=== PATIENT | female | born 1960 | race Caucasian/White ===

== ENCOUNTER 2018-09-07 15:26 | Inpatient (IN) ==
[2018-09-07] MEDS ORDERED: Morphine Inj 4 MG/ML Vial IV.PUSH ONE (16:59)
[2018-09-07] MEDS ORDERED: Vancomycin Inj 1 GM/200 ML PIGGYBACK IV.SIG SCH (17:00)
[2018-09-07] MEDS ORDERED: Tetanus/Diphtheria Toxoid Adult Vaccine Inj 0.5 ML Vial IM ONE (17:06)
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
[2018-09-07] MEDS: Clindamycin 600 mg/NS Premix 600 MG/50 ML PIGGYBACK IV.SIG SCH (17:16)
--- NOTE | 2018-09-07 17:22 | XR ---
EXAM DATE: 09/07/2018 5:15 PM EDT AGE/SEX: 57 years / Female INDICATIONS: Fever. CLINICAL DATA: This is the patient's initial encounter. Patient reports that signs and symptoms have been present for 1 day and indicates a pain score of 5/10. MEDICAL/SURGICAL HISTORY: None. None. COMPARISON: None.. FINDINGS: A single AP view of the chest demonstrates the lungs to be symmetrically aerated without evidence of mass, infiltrate or effusion. The cardiomediastinal contours are unremarkable. Osseous structures a re intact. CONCLUSION: No acute cardiopulmonary disease. Electronically signed by: Hitesh Brown MD 09/07/2018 5:20 PM EDT
[2018-09-07 17:35] LABS: Baso # (Auto) 0.1 th/mm3 (0.0-0.2); Baso % (Auto) 1.1 % (0.0-2.0); Eos % (Auto) 0.5 % (0.0-4.0); Hematocrit 36.4 % (35.0-46.0); Hemoglobin 12.9 gm/dL (11.6-15.3); Lymph # (Auto) 1.1 th/mm3 (1.0-4.8); Lymph % (Auto) 15.1 % (9.0-44.0); Mean Corpuscular HGB Conc 35.5 % (32.0-36.0); Mean Corpuscular Hemoglobin 31.6 pg (27.0-34.0); Mean Corpuscular Volume 89.1 fL (80.0-100.0); Mean Platelet Volume 9.1 fL (7.0-11.0); Mono # (Auto) 0.4 th/mm3 (0.0-0.9); Mono % (Auto) 6.3 % (0.0-8.0); Neut # (Auto) 5.4 th/mm3 (1.8-7.7); Platelet Count 230 th/mm3 (150-450); Red Blood Count 4.09 mil/mm3 (4.00-5.30); Red Cell Distribution Width 13.7 % (11.6-17.2)
[2018-09-07] MEDS ORDERED: Vancomycin Inj 1,000 MG in Sodium Chlor 0.9% Inj 250 ML IV.SIG ONE (17:45)
[2018-09-07] MEDS ORDERED: Sodium Chloride 0.9% 2 ML Flush PRN IV.FLUSH (17:45)
[2018-09-07 17:46] LABS: Activated Partial Thrombo Time 27.5 sec (24.3-30.1); Prothrombin Time 10.2 sec (9.8-11.6)
[2018-09-07 17:51] LABS: Alanine Aminotransferase 42 U/L (10-53); Albumin 4.2 g/dL (3.4-5.0); Anion Gap 8 meq/L (5-15); Aspartate Aminotransferase 20 U/L (15-37); Blood Urea Nitrogen 13 mg/dL (7-18); Calcium 8.9 mg/dL (8.5-10.1); Carbon Dioxide 27.2 meq/L (21.0-32.0); Chloride 103 meq/L (98-107); Glomerular Filtration Rate 70 mL/min (>89); Glucose,Random 107 mg/dL (74-106); Magnesium 2.4 mg/dL (1.5-2.5); Potassium 3.8 meq/L (3.5-5.1); Sodium 138 meq/L (136-145)
[2018-09-07 17:54] LABS: Alkaline Phosphatase 93 U/L (45-117); Total Protein 7.8 g/dL (6.4-8.2)
[2018-09-07 18:17] LABS: Bilirubin,Urine Negative (Negative); Clarity,Urine Clear (Clear); Color,Urine Straw (Yellw/Straw); Glucose,Urine (UA) Negative (Negative); Leukocyte Esterase,Urine Negative (Negative); Nitrite,Urine Negative (Negative); Specific Gravity,Urine 1.008 (1.002-1.035); Squamous Epithelial Cell,Urine <1 /hpf (0-5)
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
[2018-09-07] MEDS: Sodium Chloride 0.9% 2 ML Flush BID IV.FLUSH SCH (21:26)
[2018-09-07] MEDS ORDERED: Chlorhexidine Gluconate 2% 1 Pack (2 Cloths) TOPICAL ONE (22:01)
[2018-09-07] MEDS ORDERED: Metoprolol Tartrate 25 MG Tablet PO ONE (22:01)
[2018-09-07] MEDS ORDERED: Sodium Chlor 0.9% Inj 500 ML IV.SIG SCH (23:00)
[2018-09-08] MEDS: Clindamycin 600 mg/NS Premix 600 MG/50 ML PIGGYBACK IV.SIG SCH ×3 (01:29→23:15)
[2018-09-08] MEDS: Sodium Chloride 0.9% 2 ML Flush BID IV.FLUSH SCH ×2 (09:00→21:47)
--- NOTE | 2018-09-08 11:23 | ECG ---
Date Performed: 09/07/2018 Time Performed: 23:58:46 PTAGE: 57 years EKG: Sinus rhythm NORMAL ECG PREVIOUS TRACING : 09/07/2018 17.13 Since previous tracing, no significant change noted DOCTOR: Armando Quinteros Interpretating Date/Time 09/08/2018 11:21:53
[2018-09-08] MEDS ORDERED: Sodium Chlor 0.9% Inj 250 ML IV.CONT ONE (14:24)
[2018-09-08] MEDS ORDERED: Lidocaine PF 1% Inj 5 ML Syringe OTHER ONE (14:24)
[2018-09-08] MEDS ORDERED: Clindamycin Inj 600 MG/4 ML Vial ONE (14:36)
[2018-09-08] MEDS ORDERED: fentaNYL Citrate Inj 100 MCG/2 ML Ampul ONE (15:00)
--- NOTE | 2018-09-08 15:11 | P.BOP ---
Date of procedure: 09/08/18 Procedure: left leg irrigation and debridement, application of wound vac dressing Anesthesia: MARTA Surgeon: Reina Dyson MD Estimated blood loss (mL): 25 Tourniquet time (min): 0 IV fluids (mL): 500 Pathology: none sent Condition: stable Disposition: PACU
[2018-09-08] MEDS ORDERED: *morphine SULFATE 4 MG/ML PERIprocedure ONLY ONE (15:31)
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
--- NOTE | 2018-09-09 00:36 | ECG ---
Date Performed: 09/07/2018 Time Performed: 17:13:59 PTAGE: 57 years EKG: Sinus rhythm NORMAL ECG NO PREVIOUS TRACING DOCTOR: Faisal Saini Interpretating Date/Time 09/09/2018 00:34:44
[2018-09-09] MEDS: Clindamycin 600 mg/NS Premix 600 MG/50 ML PIGGYBACK IV.SIG SCH (06:48)
--- NOTE | 2018-09-09 09:50 | P.PNOP ---
Subjective Interval history: Patient is awake and alert and standing at the sink brushing her teeth. She states that her pain is well controlled and only has occasional "stabbing" pains. Patient states that she does not want to take any narcotics. She admits to having some anxiety from this hospital visit. She is also requesting a sleep aid medication. Patient does not feel ready for discharge to home today. Physical Exam Vital signs: Vital Signs 09/08/18 12:00 09/08/18 15:21 09/08/18 15:30 Temperature 97.7 F 98.2 F Pulse Rate 89 97 H 94 H Respiratory Rate 20 14 12 Blood Pressure 138/70 120/67 121/58 L Pulse Oximetry 97 09/08/18 15:38 09/08/18 15:45 09/08/18 16:00 Temperature Pulse Rate 91 H 84 Respiratory Rate 10 L 14 12 Blood Pressure 122/58 L 132/62 Pulse Oximetry 09/08/18 20:00 09/09/18 00:00 09/09/18 04:00 Temperature 97.6 F 97.5 F L 97.3 F L Pulse Rate 88 74 68 Respiratory Rate 18 18 18 Blood Pressure 117/58 L 98/53 L 102/52 L Pulse Oximetry 95 95 97 09/09/18 08:00 Temperature 97.5 F L Pulse Rate 73 Respiratory Rate 17 Blood Pressure 127/59 L Pulse Oximetry 97 Intake & Output 09/08/18 09/09/18 09/09/18 18:59 06:59 18:59 Intake Total 550 / 550 290 / 290 Output Total 25 / 25 1000 / 1000 Balance 525 / 525 -710 / -710 Weight 72.3 kg Intake: IV 50 / 50 50 / 50 Cleocin 600 mg/NS Premix 600 mg 50 / 50 50 / 50 In 50 ml @ 100 mls/hr IV.SIG Q8H [facility] Rx#:[id number] Oral 240 / 240 Anesthesia Amount 500 / 500 Output: Urine 700 / 700 Emesis 300 / 300 Estimated Blood Loss 25 / 25 Other: Mode Setting Left Calf Continuous Narrative: LLE:Wound VAC in place and has good seal, dressing dry and intact, mild swelling noted distally, free motion of ankle and distal digits, mild calf pain , negative Homans sign, good cap refill, neurovascularly intact RLE: Hematoma appreciated over right buttock region, mild tenderness to palpation, no fluctuance noted, no surrounding erythema, no ecchymosis, no discharge, no openings, no calf pain, negative Homans sign, neurovascularly intact Results - Labs CBC & Chem 7: 09/07/18 17:15 09/07/18 17:15 Microbiology 09/07/18 17:15 Blood - Peripheral Aerobic Blood Culture - Preliminary No growth in 1 day 09/07/18 17:15 Blood - Peripheral Anaerobic Blood Culture - Preliminary No growth in 1 day 09/07/18 17:10 Blood - Peripheral Aerobic Blood Culture - Preliminary No growth in 1 day 09/07/18 17:10 Blood - Peripheral Anaerobic Blood Culture - Preliminary No growth in 1 day - Procedures left leg irrigation and debridement, application of wound vac dressing, Dr Dyson 08/29/18 Assessment and Plan - Problem List (1) Abrasion hip/leg Code(s): S80.819A - Abrasion, unspecified lower leg, initial encounter Status : Acute Qualifiers: Encounter type: initial encounter Laterality: left Qualified Code(s): S80.812A - Abrasion, left lower leg, initial encounter - Assessment and Plan POD #1 left leg irrigation and debridement, application of wound vac dressing, Dr Dyson Ortho status stable Progress rehab, weightbearing as tolerated Leave wound vac in place per Dr Jean's orders. As needed Ativan and Ambien has been prescribed Following blood cultures, negative thus far Warm compress to right buttock for most likely hematoma forming Dr. Jean's team will resume care tomorrow and address questions about possible skin graft in the future Discharge planning, most likely to home with home health care
[2018-09-09] MEDS: LORazepam 0.5 MG Tablet PO PRN ×2 (10:31→18:05)
[2018-09-09] MEDS: Sodium Chloride 0.9% 2 ML Flush BID IV.FLUSH SCH ×2 (10:32→21:30)
[2018-09-09] MEDS: Zolpidem Tartrate 5 MG Tablet PO PRN (21:30)
[2018-09-10] MEDS: LORazepam 0.5 MG Tablet PO PRN (04:39)
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
[2018-09-10] MEDS: Vancomycin Inj 1,000 MG in Sodium Chlor 0.9% Inj 250 ML IV.SIG SCH (15:15)
[2018-09-10] MEDS: Sodium Chloride 0.9% 2 ML Flush BID IV.FLUSH SCH ×2 (19:17→20:04)
[2018-09-10] MEDS: Zolpidem Tartrate 5 MG Tablet PO PRN (23:08)
[2018-09-11] MEDS: Vancomycin Inj 1,000 MG in Sodium Chlor 0.9% Inj 250 ML IV.SIG SCH ×3 (00:30→19:59)
--- NOTE | 2018-09-11 08:56 | P.PNOP ---
Subjective Interval history: pain tolerable. not taking any pain meds. Physical Exam Vital signs: Vital Signs 09/10/18 12:00 09/10/18 16:00 09/10/18 20:00 Temperature 97.8 F 97.7 F 98.4 F Pulse Rate 68 75 73 Respiratory Rate 18 18 17 Blood Pressure 135/66 126/61 147/63 H Pulse Oximetry 99 96 96 09/11/18 00:00 09/11/18 08:00 Temperature 98.5 F 97.3 F L Pulse Rate 76 68 Respiratory Rate 17 16 Blood Pressure 119/66 134/60 Pulse Oximetry 99 Intake & Output 09/10/18 09/11/18 09/11/18 18:59 06:59 18:59 Intake Total 500 / 500 Output Total 1050 / 1050 Balance -550 / -550 Weight 72.3 kg Intake: IV 500 / 500 Vancomycin Inj 1,000 MG In NS 500 / 500 Inj 250 ML @ 250 mls/hr IV.SIG Q12H [facility] Rx#:[id number] Output: Urine 1000 / 1000 Wound Vac Amount 50 / 50 Left Calf 50 / 50 Other: Mode Setting Left Calf Continuous # Voids 2 Narrative: in bed, nad wound vac lateral LLE abrasions proximal to vac nvi neg homans cap refill Results - Labs CBC & Chem 7: 09/07/18 17:15 09/07/18 17:15 Microbiology 09/07/18 17:15 Blood - Peripheral Aerobic Blood Culture - Preliminary No growth in 3 days 09/07/18 17:15 Blood - Peripheral Anaerobic Blood Culture - Preliminary No growth in 3 days 09/07/18 17:10 Blood - Peripheral Aerobic Blood Culture - Preliminary No growth in 3 days 09/07/18 17:10 Blood - Peripheral Anaerobic Blood Culture - Preliminary No growth in 3 days - Procedures left leg irrigation and debridement, application of wound vac dressing, Dr Dyson 08/29/18 Assessment and Plan - Ortho Post Op Day # 3 - Problem List (1) Abrasion hip/leg Code(s): S80.819A - Abrasion, unspecified lower leg, initial encounter Status : Acute Qualifiers: Encounter type: initial encounter Laterality: left Qualified Code(s): S80.812A - Abrasion, left lower leg, initial encounter - Assessment and Plan POD #3 left leg irrigation and debridement, application of wound vac dressing, Dr Dyson Ortho status stable Progress rehab, weightbearing as tolerated wound vac therapy vs skin graft - may need consult to Dr. Mariee will likely start wound vac changes today or tomorrow pending possible skin graft eval continue IV vanco per ID As needed Chirag and Silvia Following blood cultures, negative thus far Warm compress to right buttock for most likely hematoma forming
[2018-09-11] MEDS ORDERED: Vancomycin Consult Pharmacy 1 EACH OTHER SCH (12:15)
[2018-09-11] MEDS: Sodium Chloride 0.9% 2 ML Flush BID IV.FLUSH SCH ×2 (14:06→21:00)
[2018-09-11] MEDS: Vancomycin Inj 1,500 MG in Sodium Chlor 0.9% Inj 500 ML IV.SIG SCH (14:09)
--- NOTE | 2018-09-11 20:43 | P.OP ---
- Preoperative Diagnosis (1) Abrasion hip/leg - Postoperative Diagnosis (1) Abrasion hip/leg Date of procedure: 09/08/18 Procedure: left leg irrigation and debridement with application of wound vac dressing Anesthesia: MARTA Surgeon: Reina Dyson MD Estimated blood loss (mL): 25 Tourniquet time (min): 0 IV fluids (mL): 500 Pathology: none sent Operation and Findings: Patient was identified in the preop holding area and correct side and site confirmed. Patient was then brought back to the operating room and placed supine on the table. General anesthesia was then administered. A tournaquet was placed to the left thigh although this was not inflated during the case. A bump was placed under the left hip. The leg was then prepped and draped in the usual sterile fashion. I began with excision of the skin edges of the wound which had previously been cultured in clinic. I took this back to healthy bleeding tissue. I then used a rongeur to remove tissue in the area which appeared to be devitalized fat and subcutaneous tissue. This was all located above the fascia. I manually explored the wound and found it tracked up proximally in the area where she had some swelling. A moderate size hematoma was evacuated from the area. No purulent material encountered. I then irrigated this thoroughly with the pulse lavage. A small vac dressing was then placed over the wound. The patient was then awoken from general anesthesia and taken to the recovery room in good condition.
[2018-09-11] MEDS: Zolpidem Tartrate 5 MG Tablet PO PRN (23:06)
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
[2018-09-12 08:15] LABS: Glomerular Filtration Rate Greater Than 89 mL/min (>89)
[2018-09-12] MEDS ORDERED: Metoprolol Tartrate 25 MG Tablet PO ONE (08:40)
[2018-09-12] MEDS ORDERED: Chlorhexidine Gluconate 2% 1 Pack (2 Cloths) TOPICAL ONE (08:40)
[2018-09-12] MEDS ORDERED: Sodium Chlor 0.9% Inj 500 ML IV.SIG SCH (09:00)
[2018-09-12] MEDS: Sodium Chloride 0.9% 2 ML Flush BID IV.FLUSH SCH (09:06)
[2018-09-12] MEDS ORDERED: ceFAZolin 2 GM Premix Inj 2 GM/50 ML PIGGYBACK IV.SIG ONE (09:11)
[2018-09-12] MEDS ORDERED: Lidocaine PF 1% Inj 5 ML Syringe OTHER ONE (10:12)
[2018-09-12] MEDS ORDERED: Sodium Chlor 0.9% Inj 250 ML IV.CONT ONE (10:12)
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
[2018-09-12] MEDS ORDERED: Post-op Orders (for Pharmacy) OTHER STA (10:54)
[2018-09-12] MEDS ORDERED: fentaNYL Citrate Inj 100 MCG/2 ML Ampul ONE (10:59)
[2018-09-12] MEDS ORDERED: *Meperidine Inj 25 MG/ML Vial PERIprocedural Use ONLY ONE (10:59)
[2018-09-12] MEDS ORDERED: *morphine SULFATE 4 MG/ML PERIprocedure ONLY ONE ×2 (11:08→11:21)
[2018-09-12] MEDS: Ketorolac Inj 30 MG/ML (IVP) Vial IV.PUSH SCH ×2 (11:23→19:08)
[2018-09-12] MEDS: Vancomycin Inj 1,500 MG in Sodium Chlor 0.9% Inj 500 ML IV.SIG SCH (16:13)
[2018-09-12] MEDS: Senna/Docusate Sodium 8.6/50 MG Tablet PO SCH (20:00)
[2018-09-12] MEDS: Zolpidem Tartrate 5 MG Tablet PO PRN (21:38)
[2018-09-13 00:41] LABS: Bilirubin,Urine Negative (Negative); Clarity,Urine Slightly Cloudy (Clear); Color,Urine Yellow (Yellw/Straw); Glucose,Urine (UA) Negative (Negative); Leukocyte Esterase,Urine Negative (Negative); Nitrite,Urine Negative (Negative); Urobilinogen,Urine 0.2 mg/dL (Less than 2)
[2018-09-13 01:22] LABS: RBC,Urine 0-3 /hpf (0-3); Specific Gravity,Urine 1.015 (1.002-1.035); Squamous Epithelial Cell,Urine 0-5 /hpf (0-5); WBC,Urine 0-5 /hpf (0-5)
[2018-09-13 01:23] LABS: Bacteria,Urine Few /hpf; Mucus,Urine Few /lpf (Occasional)
[2018-09-13] MEDS ORDERED: Pharmacy Ordered Lab Info OTHER ONE ×2 (02:45→14:45)
[2018-09-13] MEDS: Ketorolac Inj 30 MG/ML (IVP) Vial IV.PUSH SCH ×2 (03:36→12:27)
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
--- NOTE | 2018-09-13 07:42 | P.DCO ---
- Nursing Dressing changes: Daily dressing change, Zay wrap, 4x4s, Xeroform, Other ( bacitarcin) - Certification Need for Home Health services: I have seen patient Lauren Alfaro on 09/13/18. My clinical findings support the need for the requested home health care services because: Need for Home Health Services: Limited mobility due to disease progression Homebound Certification: I certify that my clinical findings support that this patient is homebound because: Homebound Certification: Post-op weakness
[2018-09-13] MEDS: Senna/Docusate Sodium 8.6/50 MG Tablet PO SCH ×2 (10:03→20:00)
[2018-09-13] MEDS: Pantoprazole Sodium 20 MG DR Tablet PO SCH (12:27)
[2018-09-13] MEDS: Vancomycin Inj 1,500 MG in Sodium Chlor 0.9% Inj 500 ML IV.SIG SCH (15:13)
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
--- NOTE | 2018-09-14 06:28 | P.PNOP ---
Subjective Interval history: She will is awake and alert. No new complaints today. Pain controlled. Physical Exam Vital signs: Vital Signs 09/13/18 08:00 09/13/18 12:00 09/13/18 16:00 Temperature 97.7 F 97.9 F 98.2 F Pulse Rate 64 67 65 Respiratory Rate 16 16 16 Blood Pressure 128/65 150/70 H 122/65 Pulse Oximetry 98 98 98 09/13/18 20:00 09/13/18 20:23 09/14/18 00:00 Temperature 98 F 97.8 F Pulse Rate 62 60 Respiratory Rate 20 18 18 Blood Pressure 150/67 H 151/70 H Pulse Oximetry 97 98 Intake & Output 09/13/18 09/13/18 09/14/18 06:59 18:59 06:59 Intake Total 515 / 515 1800 / 1800 515 / 515 Balance 515 / 515 1800 / 1800 515 / 515 Weight 71.3 kg 73.6 kg Intake: IV 515 / 515 515 / 515 Vancomycin Inj 1,500 MG In NS 515 / 515 515 / 515 Inj 500 ML @ 250 mls/hr IV.SIG Q24H [facility] Rx#:[id number] Oral 1800 / 1800 Other: # Voids 1 6 Date of Last Bowel Movement 09/12/18 Narrative: Lauren is awake and alert. Examination of left leg reveals clean dressings in place. Mild swelling of the foot and ankle. Sensation intact left foot. Laceration completely closed. There is small amount of serosanguineous drainage. There is no purulence or erythema. Results - Labs CBC & Chem 7: 09/07/18 17:15 09/12/18 06:20 Laboratory Results - last 24 hr 09/13/18 14:45 Vancomycin Trough 10.2 H - Procedures left leg irrigation and debridement, application of wound vac dressing, Dr Dyson 08/29/18 Assessment and Plan - Problem List (1) Wound of left lower extremity Code(s): S81.802A - Unspecified open wound, left lower leg, initial encounter Status: Acute - Assessment and Plan Irrigation debridement POD 2 with wound closure left leg Weightbearing as tolerated Begin daily dressing changes. X-rays and CT exams are reviewed from [facility] which confirmed no fractures dislocations of bilateral lower extremities or pelvis Patient has medication at home with Bactrim and doxycycline which was originally written for prior to hospital admission. Infectious disease recommendation for p.o. antibiotics --patient to finish prescription of Bactrim and doxycycline at home. Discharge home today Follow-up with Dr. Mariee or PA in 2 weeks Roshni on the chart. Acute pain exception. [employer] was accessed.
[2018-09-14] MEDS: Senna/Docusate Sodium 8.6/50 MG Tablet PO SCH (08:02)
[2018-09-14] MEDS: Pantoprazole Sodium 20 MG DR Tablet PO SCH (08:03)
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
[2018-09-14 10:58] LABS: Glomerular Filtration Rate Greater Than 89 mL/min (>89)
[2018-09-14] MEDS: Vancomycin Inj 1,500 MG in Sodium Chlor 0.9% Inj 500 ML IV.SIG SCH (14:13)
== END 2018-09-14 14:33 | disposition home or self-care (01) ==
LOC: NEPE 15:26 → NEDA 15:26 → NEPFCDU 20:46 → N07 09-08 14:16
PROVIDERS: ADMIT Orthopaedic Surgery Sports Medicine; ATTEND Orthopaedic Surgery Sports Medicine